=== PATIENT | male | born 1965 | race Caucasian/White ===

== ENCOUNTER 2018-04-05 11:26 | Day surgery (SDC) | payer BC ==
[~2018-04-05 11:26] MED LIST: Metoclopramide 10 MG/2 ML SDV IV PRN; Sodium Chloride 0.9% 1,000 ML IV SCH; Sodium Chloride 0.9% 10 ML Syringe FLUSH PRN
[2018-04-05] MEDS ORDERED: Propofol 500 MG/50 ML SDV ONE (13:10)
--- NOTE | 2018-04-05 20:46 | OR ---
DATE OF OPERATION: 04/05/2018 PREOPERATIVE DIAGNOSIS: Screening colonoscopy. POSTOPERATIVE DIAGNOSIS: Screening colonoscopy. PROCEDURE: Colonoscopy with polypectomy. ANESTHESIA: MAC. ESTIMATED BLOOD LOSS: Minimal. COMPLICATIONS: None. INDICATION FOR THE PROCEDURE: The patient is a 52-year-old male who is here today for his first screening colonoscopy. Denies any family history of colon cancer. No change in bowel habits. He has otherwise been doing well. DESCRIPTION OF PROCEDURE: Informed consent was obtained from the patient. The patient was taken to the operating room and placed on the table in the left lateral decubitus position. Monitored anesthesia care was administered. Digital rectal exam was normal. Colonoscope was then advanced through the anus directed toward the cecum. Cecum was identified by ileocecal valve as well as appendiceal orifice. Colonoscope was then slowly withdrawn. The patient did have a small sessile polyp at the hepatic flexure, removed by hot biopsy polypectomy. He had a small semipedunculated polyp in the transverse colon as well as a small pedunculated polyp in the descending colon which were both removed by snare cautery polypectomy. Additional polyp at about 20 cm which was sessile and had hot biopsy polypectomy. Retroflexion was performed in the rectum and was also unremarkable. Colonoscope was then withdrawn. FINDINGS: Colon polyps x4. RECOMMENDATIONS: We will follow up on biopsy results. Would recommend repeat screening colonoscopy in 3 years due to number of polyps. DEBBIE /[id number]
== END 2018-04-05 14:52 | disposition home or self-care (01) ==
LOC: LB.SDS 11:26
PROVIDERS: ATTEND Surgery
DX: Z12.11 Encounter for screening for malignant neoplasm of colon (principal); D12.3 Benign neoplasm of transverse colon; D12.4 Benign neoplasm of descending colon; K63.5 Polyp of colon
CPT/HCPCS: 88305; 96374; J2704; J7040; J7050